=== PATIENT | female | born 1960 | race Two or more races ===

== ENCOUNTER 2017-03-18 14:09 | Emergency (ER) | payer MEDICAID ==
[~2017-03-18] VITALS: Ht 157.5 cm; Wt 81.2 kg
--- NOTE | 2017-03-18 14:19 | NUR ---
[facility] ROOM SERVICE, PT IS CO CHEST WALL PAIN FROM [place]. NO KO. NO OTHER INJURY NOTED. CONNECTED TO TELE MONITOR
[2017-03-18 15:34] VITALS: BP 140/82
--- NOTE | 2017-03-18 15:35 | NUR ---
Patient discharged to home in stable condition. Written and verbal after care instructions given. Patient verbalizes understanding of instruction.
== END 2017-03-18 15:35 | disposition home or self-care (01) ==
LOC: ER 14:11
DX: R07.9 Chest pain, unspecified (principal); M54.5 Low back pain; V43.52XA Car driver injured in collision with other type car in traffic accident, initial encounter; Y93.89 Activity, other specified; Y92.89 Other specified places as the place of occurrence of the external cause; Y99.9 Unspecified external cause status
CPT/HCPCS: 71010; 99283; A4606; Z7610